=== PATIENT | male | born 1935 | race Caucasian/White ===

== ENCOUNTER 2020-03-22 12:12 | Observation (INO) | payer OTHER, BC ==
[2020-03-22] MEDS ORDERED: ACETAMINOPHEN 325 MG TABLET (FP) PO ONE (13:00)
[2020-03-22] MEDS ORDERED: DIPHTH,PERTUSS(ACELL),TET 0.5 ML DISP.SYRIN IM ONE ×2 (13:00→13:05)
[2020-03-22] MEDS ORDERED: ACETAMINOPHEN 325 MG TABLET (FP) ONE (13:04)
--- NOTE | 2020-03-22 13:37 | PDOC ---
History of Present Illness - General Chief Complaint: Injury Stated Complaint: FALL / LAC Time Seen by Provider: 03/22/20 12:31 - History of Present Illness Initial Comments: Pt is an 84yo M with PMH Afib s/p pacemaker on eliquis, HTN, HLD, GERD, BPH, hx of spinal stenosis who presents following fall. Pt states that he was walking from the bottom of staircase, down hallway when he fell forward and injured his forehead. Denies loss of consciousness. States that since yesterday he has noticed an issue with his R foot, asked his to check if something was wrong with his shoe. Today, his daughter states that as he was walking in the hallway at [facility], she noticed his right foot weakness. Denies any recent f/c, n/v, chest pain, shortness of breath, abdominal pain, incontinence, mental status changes. PCP: Karla Cards: Ausubel PMH: see above PSHx: b/l hip replacement, pacemaker All: NKDA Review of Systems CONSTITUTIONAL:denies fever, chills, diaphoresis, generalized weakness HEENT:denies rhinorrhea, nasal congestion, sore throat CARDIOVASCULAR:denies chest pain, palpitations, lightheadedness RESPIRATORY:denies cough, shortness of breath, wheezing GASTROINTESTINAL: denies abdominal pain, nausea, vomiting, diarrhea, constipation, melena, hematochezia GENITOURINARY:denies dysuria, frequency, urgency, hesitancy, hematuria MUSCULOSKELETAL:reports neck pain HEMATOLOGIC/IMMUNOLOGIC:denies easy bleeding, easy bruising ENDOCRINE: denies unexplained weight gain, unexplained weight loss, heat intolerance, cold intolerance NEUROLOGIC:denies headache, loss of consciousness, focal weakness or paresthesias, dizziness, unsteady gait, mental status changes, bladder or bowel incontinence SKIN:denies rash, itching, pallor Physical Exam General: awake, alert, fully oriented, in no acute distress, well developed, well nourished Head: normocephalic, laceration to R forehead, abrasion to bridge of nose Eyes: PERRL, EOMI, anicteric sclera, conjunctiva clear ENT: hard of hearing, no hemotypanum, oropharynx clear without exudates. No nasal congestion Moist mucous membranes Neck: supple, normal ROM, no midline cervical tenderness Lung: equal breath sounds b/l, CTA b/l, no crackles, wheezes; no distress, speaks full sentences Heart: RRR, normal S1, S2, no murmurs, rubs, gallops Abdomen: soft, non tender, normoactive bowel sounds, no guarding, rebound, ma sses BACK/PELVIS:There is no midline thoracic or lumbosacral spine tenderness or step-off. Pelvis is stable and nontender. Extremities: normal ROM, no edema, no erythema or tenderness, radial/PT pulses 2+ and symmetric, no clubbing, cyanosis Neuro: CN2-12 grossly intact, moves all extremities, normal speech, sensation intact; 5/5 motor strength in B/L LE, with exception of right foot dorsiflexion, negative Babinsky b/l Past History - Medical History Allergies/Adverse Reactions: Allergies Allergy/AdvReac Type Severity Reaction Status Date / Time No Known Allergies Allergy Verified 03/22/20 12:26 Home Medications: Ambulatory Orders Apixaban [Eliquis] 5 mg PO BID 03/22/20 Atorvastatin Ca [Lipitor] 80 mg PO HS 03/22/20 Eplerenone 50 mg PO HS 03/22/20 Finasteride 5 mg PO DAILY 03/22/20 Lansoprazole [Prevacid -] 30 mg PO DAILY 03/22/20 Metoclopramide HCl [Metoclopramide HCl Odt] 10 mg PO DAILY 03/22/20 Metoprolol Succinate 25 mg PO HS 03/22/20 Tamsulosin HCl 0.4 mg PO HS 03/22/20 Zolpidem Tartrate [Ambien] 10 mg PO HS 03/22/20 Cardiac Disorders: Yes COPD: No GI Disorders: Yes (gerd) Hypercholesterolemia: Yes - Surgical History Cardiac Surgery: (pacemaker) - Psycho-Social/Smoking History Smoking History: Never smoked - Substance Abuse Hx (Audit-C & DAST Scrn) How often the patient has a drink containing alcohol: Never Score: In Men: 4 or > Positive; In Women: 3 or > Positive: 0 Screen Result (Pos requires Nsg. Audit-10AR): Negative *Physical Exam - Vital Signs Last Vital Signs Temp Pulse Resp BP Pulse Ox 98 F 59 L 18 124/48 L 95 03/22/20 12:22 03/22/20 12:22 03/22/20 12:22 03/22/20 12:22 03/22/20 12:22 Procedures - Laceration/Wound Repair Right Face Wound Length: 5.0 to 7.5 cm Wound Explored: clean, no foreign body present Wound's Depth, Shape: superficial, linear Irrigated w/ Saline: Yes Anesthesia: 1% Lidocaine w/ Epi Amount of Anesthetic (ccs): 3 Wound Debrided: minimal Wound Repaired With: Sutures Suture Size/Type: 6:0, 5:0 Number of Sutures: 13 Layer Closure: No Sterile Dressing Applied: Yes Progress: Pt tolerated procedure well. Hemostasis achieved. ED Treatment Course - LABORATORY CBC & Chemistry Diagram: 03/22/20 04:43 03/22/20 04:43 - Medications Given in the ED: ED Medications Discontinued Medications Generic Name Dose Route Start Last Admin Trade Name Freq PRN Reason Stop Dose Admin Acetaminophen 650 mg 03/22/20 13:00 03/22/20 13:09 Tylenol - PO 03/22/20 13:01 650 mg ONCE ONE Administration Diphtheria/Tetanus/Acell Pertussis 0.5 ml 03/22/20 13:00 03/22/20 13:08 Boostrix - IM 03/22/20 13:01 0.5 ml .ONCE ONE Administration Medical Decision Making - Medical Decision Making Pt is an 84yo M with PMH Afib s/p pacemaker on eliquis, HTN, HLD, GERD, BPH, hx of spinal stenosis who presents following mechanical fall with new onset R foot weakness on dorsiflexion. Vital Signs Period Temp Pulse Resp BP Sys/Rosas Pulse Ox Last 24 Hr 98 F 59 18 124/48 95 DDx: mechanical fall, cord compression, disc herniation Plan: CT head, CT cervical spine, CXR, pain control, tetanus booster CT head: No CT evidence of acute intracranial pathology. A right frontal scalp laceration is seen. CT cervical spine: No fracture is identified. There is partial imaging of a transvenous cardiac pacemaker in place. A right pleural effusion is partially imaged within the upper chest. Note is also made of mild interlobular septal thickening suggestive of mild interstitial vascular congestion. CXR: There is mild enlargement of the cardiac silhouette. Mild cephalization is noted suggestive of mild vascular congestion. A small right pleural effusion partially imaged on a cervical spine CT exam performed earlier the same day cannot be appreciated on this portable view. A dual chamber transvenous cardiac pacemaker is seen in place. The mediastinum and sherrill demonstrate no obvious pathology. Deformity of the mid and distal aspect of the right clavicle is noted probably on the basis of remote injury. Facial movement intact, no injury to galea appreciated. Laceration was repaired with 13 sutures. Consulted neurosurgery, Dr. Benjamin, who recommended MRI, however given pat jeny's pacemaker, he is unable to get his MRI here. Dr. Benjamin recommended CT lumbar spine. CT lumbar spine: Postsurgical changes are noted as described above two adjacent separate 2 x 0.2 cm tubular shaped extraspinal radiopaque/metallic densities presumably on a postsurgical/postprocedural basis. Marked L3-L4 and moderate to marked L2-L3 degenerative central canal stenosis is seen. There is partial imaging of a right pleural effusion. Given patient's new onset right foot drop, admission for observation and PT was discussed with patient who agreed with plan. Pt discussed with Dr. Figueroa, who accepted care of patient. Disposition Admit Discharge - Discharge Information Problems reviewed: Yes Clinical Impression/Diagnosis: Laceration, Right foot drop Fall Qualifiers: Encounter type: initial encounter Qualified Code(s): W19.XXXA - Unspecified fall, initial encounter Condition: Stable - Admission Yes - Follow up/Referral - Patient Discharge Instructions - Post Discharge Activity
--- NOTE | 2020-03-22 15:15 | PDOC ---
Documentation entered by Chelita Stokes SCRIBE, acting as scribe for Madhavi Moya MD. Madhavi Moya MD: This documentation has been prepared by the scribeKike Ana, SCRIBE, under my direction and personally reviewed by me in its entirety. I confirm that the documentation accurately reflects all work, treatment, procedures, and medical decision making performed by me. Attending Attestation - Resident Resident Name: Debbie Roach - ED Attending Attestation I have performed the following: I have examined & evaluated the patient, The case was reviewed & discussed with the resident, I agree w/resident's findings & plan, Exceptions are as noted - HPI HPI: 03/22/20 12:34 Patient is an 84 year old male with a significant past medical history of Afib (has a pacemaker), hypertension, HLD, GERD, BPH, and spinal stenosis, who presents to the ED with a fall from yesterday. Patient stated he was walking down the stairs when he fell forward. Patient disclosed that since the fall he has been having "issues" with his right foot. Per patient's daughter, patient has a "right foot drop". Patient denies: LOC, fever, chills, nausea, vomiting, or any other related symptoms. Allergies: NKDA - Physicial Exam PE: 03/22/20 13:13 General: well appearing HEENT: ~4cm laceration to forehead with small amount of oozing, no racoon eyes, no moore sign, no hemotympanum Neck: supple, no midline tenderness Extremities: warm and well perfused, dorsiflexion 3-4/5 on R 5/5 on L, no LE edema Neuro: awake, alert, responds appropriately to questions, speech fluent, face s ymmetric, +foot drop on R - Medical Decision Making 03/22/20 13:15 84 yo M with mechanical fall likely 2/2 new foot drop (noticed by daughter yesterday evening), concern for cord compression. Will also r/o ICH as patient with fall, facial trauma and on a/c. Plan: -CT head -CT c-spine -cxr -tetanus -will speak with neurosurgery regarding new foot drop and concern for cord compression (pt with h/o spinal stenosis) and possible need for urgent MRI -lac repair -reassess This clinical encounter is taking place during a federal and state health care emergency attributable to the novel Rodríguez Virus pandemic. The [employer] of the Department of Health and Human Services has declared, pursuant to the Public Health Service Act 319F-3 (42 U.S.C. 247d-6d), that a covered persons activities related to medical countermeasures against COVID-19 will be immune from liability under Federal and State law. 03/22/20 16:18 As per communications technologist, Pt. unable to get MRI because of pacemaker. Spoke with neurosurgery who recommends CT L spine. CT results reviewed and discussed with neurosurgery. Recommend starting steroids. Patient to be admitted. Discharge - Discharge Information Problems reviewed: Yes Clinical Impression/Diagnosis: Laceration, Right foot drop Fall Qualifiers: Encounter type: initial encounter Qualified Code(s): W19.XXXA - Unspecified fall, initial encounter Condition: Stable Disposition: HOME - Follow up/Referral - Patient Discharge Instructions - Post Discharge Activity
[2020-03-22] MEDS ORDERED: methylPREDNISolone 8 MG TABLET PO ONE (15:45)
[2020-03-22] MEDS ORDERED: BACITRACIN 0.9 GM PACKET ONE (16:04)
[2020-03-22] MEDS ORDERED: BACITRACIN 15 GM TUBE TOPICAL OINTMENT TP ONE (16:17)
--- NOTE | 2020-03-22 16:27 | HP ---
CHIEF COMPLAINT: Fall PCP: Karla CARD: Garrett HISTORY OF PRESENT ILLNESS: 84yo M with h/o Atrial fibrillation s/p PPM insertion, HTN, HLd, GERD, BPH who presented originally due to mechanical fall. Patient reports he hit his head without any loss of consciousness and takes AC regularly for his Afib. Patient notes that for about 2 days he has experienced difficulty with his R foot. He thought it had to do with his shoes, however his has noticed that he has some R foot drop when walking. Patient reports when he trips on his foot which initially caused the mechanical fall today. Patient has no new neurological deficits after his fall. In the ER, neurosurgery was consulted after CT Lumbar spine who recommended to give medrol taper. MRI could not be accomplished due to PPM with unknown model. Pt denies any visual disturbances, fever/chills, n/v/d/c, lightheadedness, d izziness, SOB, CP, palpitations, abdominal pain, polyuria, dysuria. PAST MEDICAL HISTORY: As above PAST SURGICAL HISTORY: Lumbar spine surgery (likely decompression based on pt's report; 8 years prior) Hip replacement Social History: Smoking: Denies Alcohol: Denies Drugs: Denies FamHx: noncontributory Allergies No Known Allergies Allergy (Verified 03/22/20 12:26) HOME MEDICATIONS: Home Medications Medication Instructions Recorded Apixaban [Eliquis] 5 mg PO BID 03/22/20 Atorvastatin Ca [Lipitor] 80 mg PO HS 03/22/20 Eplerenone 50 mg PO HS 03/22/20 Finasteride 5 mg PO DAILY 03/22/20 Lansoprazole [Prevacid -] 30 mg PO DAILY 03/22/20 Metoclopramide HCl [Metoclopramide 10 mg PO DAILY 03/22/20 HCl Odt] Metoprolol Succinate 25 mg PO HS 03/22/20 Tamsulosin HCl 0.4 mg PO HS 03/22/20 REVIEW OF SYSTEMS as per HPI PHYSICAL EXAMINATION Vital Signs - 24 hr 03/22/20 12:22 Temperature 98 F Pulse Rate 59 L Respiratory 18 Rate Blood Pressure 124/48 L O2 Sat by Pulse 95 Oximetry (%) GENERAL: Awake, alert, and fully oriented, in no acute distress. HEENT: R head laceration bandaged without blood noted, sutured closed with good approximate borders, EOMI, RONDA, sclera anicteric, MMM NECK: No C-spine TTP LUNGS: CTA bilaterally. No wheezes, and no crackles. No accessory muscle use. HEART: RRR normal S1 and S2 without murmur ABDOMEN: Soft, nontender, not distended, normoactive bowel sounds, no guarding, no rebound EXT: 2+ pulses, warm, well-perfused. No calf tenderness. No peripheral edema. No bony abnormalities NEUROLOGICAL: CN II -XII intact. Motor strength symmetrical in lower extremities 4+/5. Sensation intact throughout. mild tremor noted. Gait with slight R foot drop. PSYCHIATRIC: Cooperative. Good eye contact. Appropriate mood and affect. SKIN: Warm, dry, no rashes or lesions noted ASSESSMENT/PLAN: Mechanical Fall New Onset Motor Deficit R/o lumbar compression Atrial Fibrillation HTN HLD BPH --MRI cannot be performed due to PPM --Lumbar CT reviewed --Neurosurgery consulted: Steroid administration --Neuro checks --Physical therapy consulted --Head CT reviewed --Lac repair performed by ED --Tetanus booster administered --Monitor for rebleed of superficial wound --Phys therapy prior to d/c --Toprol XL for rate control --Hold Eliquis in setting of neuro symptoms and mechanical fall for now --Continue Lipitor 80mg nightly --Continue Finasteride qd and Flomax 0.4mg HS Diet: Regular DVT: SCDs only dispo: Med-surg Rigo Figueroa, DO - IM Visit type - Medication Review Med list reviewed for High Risk Meds patients 65 and older: Yes - Emergency Visit Emergency Visit: Yes ED Registration Date: 03/22/20 Care time: The patient presented to the Emergency Department on the above date and was hospitalized for further evaluation of their emergent condition. - New Patient This patient is new to me today: Yes Date on this admission: 03/22/20 - Critical Care Critical Care patient: No
[2020-03-22] MEDS ORDERED: ACETAMINOPHEN 325 MG TABLET (FP) PO PRN (17:08)
[2020-03-22 17:20] LABS: BASO % 0.5 % (0-2.0); EOS % 0.1 % (0-4.5); HEMOGLOBIN 13.4 GM/dL (11.7-16.9); LYMPH % 6.1 % (8-40); MCH 31.3 pg (25.7-33.7); MCHC 33.6 g/dl (32.0-35.9); MEAN CELL VOLUME 93.3 fl (80-96); MEAN PLT VOLUME 9.6 fl (7.5-11.1); MONO % 5.7 % (3.8-10.2); NEUT % 87.6 % (42.8-82.8); PLATELET COUNT 159 K/MM3 (134-434); RBC 4.29 M/mm3 (4.00-5.60); RDW 13.8 % (11.9-15.9); WHITE BLOOD COUNT 10.1 K/mm3 (4.0-10.0)
[2020-03-22 17:47] LABS: ALBUMIN 3.8 g/dl (3.4-5.0); BILIRUBIN,TOTAL 0.9 mg/dL (0.2-1); BLOOD UREA NITROGEN 22.5 mg/dL (7-18); CREATININE 0.9 mg/dL (0.55-1.3); POTASSIUM 4.4 mmol/L (3.5-5.1); TOT PROT 6.6 g/dl (6.4-8.2)
[2020-03-22 18:51] VITALS: BMI 23.6
[2020-03-22] MEDS: TAMSULOSIN HCL 0.4 MG CAP PO SCH (22:24)
[2020-03-22] MEDS: ATORVASTATIN CA 80 MG TABLET (FP) PO SCH (22:24)
[2020-03-22] MEDS: ZOLPIDEM TARTRATE 5 MG TABLET PO PRN (22:25)
[2020-03-22] MEDS: metoPROLOL SUCCINATE 25 MG TAB.SR.24H (FP) PO SCH (22:25)
[2020-03-23] MEDS: ZOLPIDEM TARTRATE 5 MG TABLET PO PRN (00:48)
[2020-03-23 08:46] LABS: HEMATOCRIT 39.3 % (35.4-49); HEMOGLOBIN 13.3 GM/dL (11.7-16.9); MCH 31.6 pg (25.7-33.7); MCHC 33.7 g/dl (32.0-35.9); MEAN CELL VOLUME 93.7 fl (80-96); MEAN PLT VOLUME 9.8 fl (7.5-11.1); PLATELET COUNT 163 K/MM3 (134-434); RBC 4.19 M/mm3 (4.00-5.60); RDW 13.7 % (11.9-15.9); WHITE BLOOD COUNT 8.9 K/mm3 (4.0-10.0)
[2020-03-23 08:55] LABS: BLOOD UREA NITROGEN 21.7 mg/dL (7-18); CALCIUM 8.9 mg/dL (8.5-10.1); POTASSIUM 3.9 mmol/L (3.5-5.1)
[2020-03-23] MEDS ORDERED: PT OWN MED DRAWER 7, Y5N ONE ×2 (09:09→10:54)
[2020-03-23] MEDS: TAMSULOSIN HCL 0.4 MG CAP PO SCH (09:14)
[2020-03-23] MEDS: FINASTERIDE 5 MG TABLET (FP) PO SCH (09:14)
--- NOTE | 2020-03-23 09:16 | EKG ---
Test Reason : Blood Pressure : / mmHG Vent. Rate : 063 BPM Atrial Rate : 059 BPM P-R Int : 000 ms QRS Dur : 172 ms QT Int : 496 ms P-R-T Axes : 000 110 -17 degrees QTc Int : 507 ms AV dual-paced rhythm WITH FREQUENT PVCs ABNORMAL ECG NO PREVIOUS ECGS AVAILABLE Confirmed by Francisco Williamson ([id number]) on 03/23/2020 9:16:14 AM Referred By: Confirmed By:Francisco Williamson
[2020-03-23] MEDS ORDERED: methylPREDNISolone 4 MG TABLET PO ONE (10:00)
--- NOTE | 2020-03-23 14:07 | PN ---
Teaching Attending Note Name of Resident: Osman Cain ATTENDING PHYSICIAN STATEMENT I saw and evaluated the patient. I reviewed the resident's note and discussed the case with the resident. I agree with the resident's findings and plan as documented. SUBJECTIVE: pt seen and examined OBJECTIVE: Last Vital Signs Temp Pulse Resp BP Pulse Ox 98.6 F 63 18 130/59 L 97 03/23/20 09:10 03/23/20 09:10 03/23/20 09:10 03/23/20 09:10 03/23/20 09:10 GENERAL: Awake, alert, and fully oriented, in no acute distress. HEAD: Rt. frontal/supraorbital laceration, stiched, non bleeding, EYES: Pupils RRR, EOMI, sclera anicteric, conjunctiva clear. LUNGS: Breath sounds equal, clear to auscultation bilaterally. No wheezes, and no crackles. No accessory muscle use. HEART: Regular rate and rhythm, normal S1 and S2 ABDOMEN: Soft, nontender, not distended MUSCULOSKELETAL: Normal range of motion at all joints. No bony deformities or tenderness. No CVA tenderness. UPPER EXTREMITIES: 2+ pulses, warm, well-perfused. No cyanosis. No clubbing. No peripheral edema. LOWER EXTREMITIES: 2+ pulses, warm, well-perfused. No calf tenderness. No peripheral edema. NEUROLOGICAL: Cranial nerves II-XII intact. Normal speech. Rt decreased dorsiflexion. No cerebellar dysfunction noted CBCD WBC 8.9 K/mm3 (4.0-10.0) 03/23/20 06:20 RBC 4.19 M/mm3 (4.00-5.60) 03/23/20 06:20 Hgb 13.3 GM/dL (11.7-16.9) 03/23/20 06:20 Hct 39.3 % (35.4-49) 03/23/20 06:20 MCV 93.7 fl (80-96) 03/23/20 06:20 MCHC 33.7 g/dl (32.0-35.9) 03/23/20 06:20 RDW 13.7 % (11.9-15.9) 03/23/20 06:20 Plt Count 163 K/MM3 (134-434) 03/23/20 06:20 MPV 9.8 fl (7.5-11.1) 08/10/20 06:20 CMP Sodium 141 mmol/L (136-145) 03/23/20 06:20 Potassium 3.9 mmol/L (3.5-5.1) 03/23/20 06:20 Chloride 106 mmol/L (98-107) 03/23/20 06:20 Carbon Dioxide 25 mmol/L (21-32) 03/23/20 06:20 Anion Gap 10 MMOL/L (8-16) 03/23/20 06:20 BUN 21.7 mg/dL (7-18) H 03/23/20 06:20 Creatinine 1.0 mg/dL (0.55-1.3) 03/23/20 06:20 Calcium 8.9 mg/dL (8.5-10.1) 03/23/20 06:20 Total Bilirubin 0.9 mg/dL (0.2-1) 03/22/20 04:43 AST 33 U/L (15-37) 03/22/20 04:43 ALT 31 U/L (13-61) 03/22/20 04:43 Alkaline Phosphatase 89 U/L (45-117) 03/22/20 04:43 Total Protein 6.6 g/dl (6.4-8.2) 03/22/20 04:43 Albumin 3.8 g/dl (3.4-5.0) 03/22/20 04:43 Active Medications Acetaminophen (Tylenol -) 650 mg PO Q4H PRN PRN Reason: FEVER Atorvastatin Calcium (Lipitor -) 80 mg PO HS JEN Last Admin: 03/22/20 22:24 Dose: 80 mg Documented by: Finasteride (Proscar -) 5 mg PO DAILY [facility] Last Admin: 03/23/20 09:14 Dose: 5 mg Documented by: Metoprolol Succinate (Toprol Xl -) 25 mg PO HS [facility] Last Admin: 03/22/20 22:25 Dose: 25 mg Documented by: Zolpidem Tartrate (Ambien -) 5 mg PO HS PRN PRN Reason: INSOMNIA Last Admin: 03/23/20 00:48 Dose: 5 mg Documented by: ASSESSMENT AND PLAN: 84yo man with Mhx of Atrial fibrillation s/p PPM insertion, HTN, HLd, GERD, BPH who presented originally due to mechanical fall without any loss of consciousness # Mechanical Fall -New onset rt foot drop? -CT lumbar: multilevel degenerative disease, post surgical changes -neurosurgeon consulted, possible steroids administration (will need to hold off AC 2 days prior) -CHADVASC 3, HAS-BLED 2 (4%risk) -positive orthostatics will d/c tamsulosin and keep BB -SW, PT eval, ortho-shoes -pt lives alone Atrial Fibrillation (resume AC after injection) HTN HLD BPH DVT: SCDs only
--- NOTE | 2020-03-23 15:09 | CONSULT ---
Consult - text type - Consultation Consultation Note: NEUROSURGERY CONSULTATION Landry Torrez is an 84 year old male who presented to the [facility] ED yesterday after a fall on stairs. The patient describes a 3 day history of Right foot drop. He has a remote history of Lumbar decompression surgery at [facility] (approximately 8 years ago). Patient has atrial fibrillation and is maintained on Elliquis. He struck his head and CT reveals minimal contusions without significant mass effect. Patient has a pacemaker and was unable to have MRI. 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 There is no obvious acute disc herniation, fracture or hematoma which would explain his new foot drop on the Right although there is moderate degenerative changes at most levels. The patient relates no back pain or radicular pain prior to this recent motor weakness which is not associated with any antecedent accident or injury. The patient currently has 3/5 weakness of dorsiflexion on the Right. Given the short duration of symptoms, relatively mild findings, his advanced age, extent of spinal pathology and lack of significant pain in the setting of substantial medical co-morbidities, I feel that acute Neurosurgical intervention would not be the patient's best interest as initial treatment. Patient started on Medrol dosepack yesterday and may be slightly stronger in his dorsiflexion. Patient may benefit from Lumbar epidural steroid injection. Case discussed with Dr. Nolasco who agrees with this plan of care and will see the patient to plan DONALD. All questions answered. Will follow.
--- NOTE | 2020-03-23 17:26 | PN ---
Physical Exam: SUBJECTIVE: No overnight events. Patient seen and examined. Endorses feeling well; Eager to go home. OBJECTIVE: Vital Signs Period Temp Pulse Resp BP Sys/Rosas Pulse Ox Last 24 Hr 98 F-98.8 F 60-76 16-18 130-152/55-91 95-97 GENERAL: The patient is awake, alert, and fully oriented, in no acute distress. HEENT: 4cm sutured laceration R forehead, NC, conjunctiva clear. No ptosis. moist mucous membranes. LUNGS: Breath sounds equal, clear to auscultation bilaterally, no wheezes, no crackles, no accessory muscle use. HEART: Regular rate and rhythm, S1, S2 without murmur, rub or gallop. ABDOMEN: Soft, nontender, nondistended, normoactive bowel sounds EXTREMITIES: 2+ pulses, warm, well-perfused, no edema. 5/5 strength b/l UE. 5/5 strength b/l LE, EXCEPT dorsiflexion R foot 3/5, plantarflexion R foot 4/5. Sensation intact throughout. NEUROLOGICAL: Cranial nerves II through XII grossly intact. Normal speech, gait not observed. cerebellar function infact (rapid alternative movement, heel to haro, finger to nose); Romberg negative PSYCH: Normal mood, normal affect. SKIN: Warm, dry, normal turgor, no rashes or lesions noted Laboratory Results - last 24 hr 03/22/20 03/22/20 03/23/20 04:36 04:43 06:20 WBC 8.9 RBC 4.19 Hgb 13.3 Hct 39.3 MCV 93.7 MCH 31.6 MCHC 33.7 RDW 13.7 Plt Count 163 MPV 9.8 Sodium 140 Potassium 4.4 Chloride 106 Carbon Dioxide 25 Anion Gap 9 BUN 22.5 H Creatinine 0.9 Est GFR (CKD-EPI)AfAm 89.32 Est GFR (CKD-EPI)NonAf 77.06 Random Glucose 107 H Calcium 9.0 Total Bilirubin 0.9 AST 33 ALT 31 Alkaline Phosphatase 89 Total Protein 6.6 Albumin 3.8 COVID-19 (MARGARET) Not detected 03/23/20 06:20 WBC RBC Hgb Hct MCV MCH MCHC RDW Plt Count MPV Sodium 141 Potassium 3.9 Chloride 106 Carbon Dioxide 25 Anion Gap 10 BUN 21.7 H Creatinine 1.0 Est GFR (CKD-EPI)AfAm 78.64 Est GFR (CKD-EPI)NonAf 67.85 Random Glucose 97 Calcium 8.9 Total Bilirubin AST ALT Alkaline Phosphatase Total Protein Albumin COVID-19 (MARGARET) Active Medications Generic Name Dose Route Start Last Admin Trade Name Freq PRN Reason Stop Dose Admin Acetaminophen 650 mg 03/22/20 17:08 Tylenol - PO Q4H PRN FEVER Atorvastatin Calcium 80 mg 03/22/20 22:00 03/22/20 22:24 Lipitor - PO 80 mg HS JEN Administration Finasteride 5 mg 03/23/20 10:00 03/23/20 09:14 Proscar - PO 5 mg DAILY JEN Administration Metoprolol Succinate 25 mg 03/22/20 22:00 03/22/20 22:25 Toprol Xl - PO 25 mg HS JEN Administration Zolpidem Tartrate 5 mg 03/22/20 18:42 03/23/20 00:48 Ambien - PO 5 mg HS PRN Administration INSOMNIA CT head: No CT evidence of acute intracranial pathology. A right frontal scalp laceration is seen. CT cervical spine: No fracture is identified. There is partial imaging of a transvenous cardiac pacemaker in place. A right pleural effusion is partially imaged within the upper chest. Note is also made of mild interlobular septal thickening suggestive of mild interstitial vascular congestion. CXR: There is mild enlargement of the cardiac silhouette. Mild cephalization is noted suggestive of mild vascular congestion. A dual chamber transvenous cardiac pacemaker is seen in place. Deformity of the mid and distal aspect of the right clavicle is noted probably on the basis of remote injury. CT lumbar spine: two adjacent separate 2 x 0.2 cm tubular shaped extraspinal radiopaque/metallic densities presumably on a postsurgical/postprocedural basis. Marked L3-L4 and moderate to marked L2-L3 degenerative central canal stenosis is seen. There is partial imaging of a right pleural effusion. Supine 150/71 HR 60 Sitting 149/75 HR 78 Standing 137/54 HR 70 ASSESSMENT/PLAN: 84 YO M PMH HTN, HLD, BPH, GERD, afib (on eliquis), spinal stenosis (s/p Lumbar decompression surgery 8 yrs ago), and PPM presented s/p a mechanical fall after tripping. was first to notice his R foot drop. # Fall 2/2 Foot drop Vs orthostatic hypotension -New onset R foot drop X 2 days -Neurosurgery c/s appreciated. Neurosurgical intervention not indicated currently. DONALD w/ Dr. Nolasco recommended -AC held (2 days prior to DONALD) -PT: walked 60 ft #Atrial Fibrillation: c/w eliquis after DONALD #HTN: c/w home rx metoprolol 25 mg PO HS #HLD: c/w home dose atorvastatin 80 mg PO HS #BPH: c/w home rx finasteride 5 mg PO daily. DC tamusolosin 2/2 orthostatic hypotension #DVT: SCDs only; : c/w eliquis after DONALD Visit type - Emergency Visit Emergency Visit: Yes ED Registration Date: 03/22/20 Care time: The patient presented to the Emergency Department on the above date and was hospitalized for further evaluation of their emergent condition. - New Patient This patient is new to me today: Yes Date on this admission: 03/23/20 - Critical Care Critical Care patient: No - Medication Review Med list reviewed for High Risk Meds patients 65 and older: Yes ATTENDING PHYSICIAN STATEMENT I saw and evaluated the patient. I reviewed the resident's note and discussed the case with the resident. I agree with the resident's findings and plan as documented. SUBJECTIVE: OBJECTIVE: ASSESSMENT AND PLAN:
[2020-03-23] MEDS: ATORVASTATIN CA 80 MG TABLET (FP) PO SCH (21:27)
[2020-03-23] MEDS: metoPROLOL SUCCINATE 25 MG TAB.SR.24H (FP) PO SCH (21:27)
[2020-03-24] MEDS: ZOLPIDEM TARTRATE 5 MG TABLET PO PRN (00:17)
[2020-03-24 08:43] LABS: BASO % 0.8 % (0-2.0); EOS % 0.6 % (0-4.5); HEMOGLOBIN 14.4 GM/dL (11.7-16.9); LYMPH % 13.9 % (8-40); MCH 31.8 pg (25.7-33.7); MCHC 34.3 g/dl (32.0-35.9); MEAN CELL VOLUME 92.8 fl (80-96); MEAN PLT VOLUME 9.2 fl (7.5-11.1); MONO % 10.4 % (3.8-10.2); NEUT % 74.3 % (42.8-82.8); PLATELET COUNT 171 K/MM3 (134-434); RBC 4.53 M/mm3 (4.00-5.60); WHITE BLOOD COUNT 9.3 K/mm3 (4.0-10.0)
[2020-03-24 09:15] LABS: BLOOD UREA NITROGEN 22.7 mg/dL (7-18); CALCIUM 9.2 mg/dL (8.5-10.1); CREATININE 0.9 mg/dL (0.55-1.3); MAGNESIUM 2.3 mg/dL (1.8-2.4); PHOSPHOROUS 3.2 mg/dL (2.5-4.9); POTASSIUM 3.8 mmol/L (3.5-5.1); TOT PROT 7.5 g/dl (6.4-8.2)
[2020-03-24] MEDS: FINASTERIDE 5 MG TABLET (FP) PO SCH (09:23)
--- NOTE | 2020-03-24 09:47 | ECHO ---
Name: BERTHA MCGARRY Exam:Adult Echocardiogram Study Date: 03/24/2020 08:32 AM Age: 84 yrs Reason For Study: SYNCOPE Height: 70 in Weight: 164 lb BSA: 1.9 m2 MMode/2D Measurements & Calculations IVSd: 1.5 cm Ao root diam: 3.0 cm LVIDd: 4.1 cm LA dimension: 4.3 cm LVIDs: 3.0 cm LVPWd: 1.4 cm EDV(Teich): 73.5 ml LVOT diam: 2.0 cm ESV(Teich): 35.7 ml LAV (MOD-bp): 97.3 ml Doppler Measurements & Calculations MV E max edenilson: 111.0 cm/sec Ao V2 max: 150.5 cm/sec MV A max edenilson: 45.9 cm/sec Ao max P.1 mmHg MV E/A: 2.4 AI P1/2t: 508.2 msec MV dec time: 0.22 sec LETY(V,D): 1.5 cm2 AI max edenilson: 360.7 cm/sec LV V1 max P.0 mmHg AI max P.1 mmHg LV V1 max: 70.6 cm/sec AI dec slope: 207.9 cm/sec2 MR max edenilson: 602.8 cm/sec TR max edenilson: 259.0 cm/sec MR max P.5 mmHg TR max P.8 mmHg PA V2 max: 122.0 cm/sec Med Peak E' Edenilson: 3.2 cm/sec PA max P.9 mmHg Med E/e': 35.2 Lat Peak E' Edenilson: 5.9 cm/sec Lat E/e': 18.9 PI Vmax: 91.9 cm/sec Procedure A two-dimensional transthoracic echocardiogram with color flow and Doppler was performed. The patient was in an abnormal rhythm during the exam. Left Ventricle The left ventricle is normal in size. There is moderate concentric left ventricular hypertrophy. Left ventricular systolic function is low normal. Ejection Fraction = 50%. Diastolic dysfunction, Grade II (pseudonormalization pattern). There is septal akinesis. Right Ventricle The right ventricle is normal in size and function. There is a pacemaker lead in the right ventricle. Atria The left atrium is mildly dilated. Right atrial size is normal. Mitral Valve The mitral valve is grossly normal. There is moderate mitral regurgitation. Tricuspid Valve The tricuspid valve is not well visualized, but is grossly normal. There is trace tricuspid regurgita tion. There was insufficient TR detected to calculate RV systolic pressure. Aortic Valve There is mild aortic sclerosis.;. No hemodynamically significant valvular aortic stenosis. Mild aorti c regurgitation. Pulmonic Valve The pulmonic valve is not well seen, but is grossly normal. Mild pulmonic valvular regurgitation. Great Vessels The aortic root is normal size. Pericardium/Pleura There is no pericardial effusion. Interpretation Summary The left ventricle is normal in size. There is moderate concentric left ventricular hypertrophy. Left ventricular systolic function is low normal. There is septal akinesis. Diastolic dysfunction, Grade II (pseudonormalization pattern). The left atrium is mildly dilated. There is moderate mitral regurgitation. There is trace tricuspid regurgitation. There was insufficient TR detected to calculate RV systolic pressure. There is mild aortic sclerosis.; No hemodynamically significant valvular aortic stenosis. Mild aortic regurgitation. MD Douglas Menezes 03/24/2020 09:47 AM
--- NOTE | 2020-03-24 14:03 | PN ---
Teaching Attending Note Name of Resident: Osman Cain ATTENDING PHYSICIAN STATEMENT I saw and evaluated the patient. I reviewed the resident's note and discussed the case with the resident. I agree with the resident's findings and plan as documented. SUBJECTIVE: doing well, and still has foot drop. but able to walk, no new c/o. OBJECTIVE: appears comfortable, and walking around Last Vital Signs Temp Pulse Resp BP Pulse Ox 97.7 F 67 17 153/67 98 03/24/20 14:27 03/24/20 14:27 03/24/20 14:27 03/24/20 14:27 03/24/20 14:27 GENERAL: Awake, alert, and fully oriented, in no acute distress. HEAD: Normal with no signs of trauma. EYES: Pupils equal, round and reactive to light, extraocular movements intact, sclera anicteric, conjunctiva clear. No lid lag. EARS, NOSE, THROAT: Ears normal, nares patent, oropharynx clear without exudates. Moist mucous membranes. NECK: Normal range of motion, supple without lymphadenopathy, JVD, or masses. LUNGS: Breath sounds equal, clear to auscultation bilaterally. No wheezes, and no crackles. No accessory muscle use. HEART: Regular rate and rhythm, normal S1 and S2 without murmur, rub or gallop. ABDOMEN: Soft, nontender, not distended, normoactive bowel sounds, no guarding, no rebound, no masses. No hepatomegaly or splenomegaly. MUSCULOSKELETAL: Normal range of motion at all joints. No bony deformities or tenderness. No CVA tenderness. UPPER EXTREMITIES: 2+ pulses, warm, well-perfused. No cyanosis. No clubbing. Cap refill <2 seconds. No peripheral edema. LOWER EXTREMITIES: 2+ pulses, warm, well-perfused. 3/5 dorsiflexion R foot, and no gait abnormality. NEUROLOGICAL: Cranial nerves II-XII intact. Normal speech. Normal gait. PSYCHIATRIC: Cooperative. Good eye contact. Appropriate mood and affect. SKIN: Warm, dry, normal turgor, no rashes or lesions noted. sutures on the forehead, clean no bleeding, CBC, BMP 03/24/20 07:40 03/24/20 07:40 ASSESSMENT AND PLAN: 84yo man with Mhx of Atrial fibrillation s/p PPM insertion, HTN, HLd, GERD, BPH who presented originally due to mechanical fall without any loss of consciousness # Mechanical Fall -New onset rt foot drop -CT lumbar: multilevel degenerative disease, post surgical changes -neurosurgeon consulted, no surgical intervention needed was seen by DR Nolasco -refusing to do DONALD. -SW, PT eval, ortho-shoes -pt lives alone Atrial Fibrillation will continue A/C as refusing the DONALD. HTN HLD BPH dced home and outpt pmd fu,
[2020-03-24 14:31] VITALS: BP 153/67; PULSE 67; TEMP 97.7
--- NOTE | 2020-03-24 15:50 | DS ---
Physical Exam: SUBJECTIVE: Patient seen and examined. No complaints. Eager to go home. OBJECTIVE: Vital Signs Period Temp Pulse Resp BP Sys/Rosas Pulse Ox Last 24 Hr 97.7 F-98.7 F 67-91 17-19 127-157/64-85 95-98 PHYSICAL EXAM GENERAL: The patient is awake, alert, and fully oriented, in no acute distress. HEENT: 4cm sutured laceration R forehead, NC, conjunctiva clear. No ptosis. moist mucous membranes. LUNGS: Breath sounds equal, clear to auscultation bilaterally, no wheezes, no c rackles, no accessory muscle use. HEART: Regular rate and rhythm, S1, S2 without murmur, rub or gallop. ABDOMEN: Soft, nontender, nondistended, normoactive bowel sounds EXTREMITIES: 2+ pulses, warm, well-perfused, no edema. 5/5 strength b/l UE. 5/5 strength b/l LE, EXCEPT dorsiflexion R foot 3/5, plantarflexion R foot 4/5. Sensation intact throughout. NEUROLOGICAL: Cranial nerves II through XII grossly intact. Normal speech, gait not observed. cerebellar function infact (rapid alternative movement, heel to haro, finger to nose); Romberg negative PSYCH: Normal mood, normal affect. SKIN: Warm, dry, normal turgor, no rashes or lesions noted LABS Laboratory Results - last 24 hr 03/24/20 03/24/20 07:40 07:40 WBC 9.3 RBC 4.53 Hgb 14.4 Hct 42.0 MCV 92.8 MCH 31.8 MCHC 34.3 RDW 14.0 Plt Count 171 MPV 9.2 Absolute Neuts (auto) 6.9 Neutrophils % 74.3 Lymphocytes % 13.9 D Monocytes % 10.4 H D Eosinophils % 0.6 D Basophils % 0.8 Nucleated RBC % 0 Sodium 140 Potassium 3.8 Chloride 106 Carbon Dioxide 27 Anion Gap 7 L BUN 22.7 H Creatinine 0.9 Est GFR (CKD-EPI)AfAm 89.32 Est GFR (CKD-EPI)NonAf 77.06 Random Glucose 99 Calcium 9.2 Phosphorus 3.2 Magnesium 2.3 Total Bilirubin 1.0 AST 41 H ALT 39 Alkaline Phosphatase 95 Total Protein 7.5 Albumin 4.0 HOSPITAL COURSE: 84yo M with h/o Atrial fibrillation(on Eliquis) s/p PPM insertion, HTN, HLd, GERD, BPH BIBA after sustaining mechanical fall w/o LOC. Has been experiencing foot Right foot drop x2d. Had a scalp lac repair(ED, ). CTH neg. CTcspine neg for fx. CXR showed remote Right clavicular fracture. CT Lspine notable for marked degenerative central canal stenosis of L2-L3, L3-L4. Neurosurgery was consulted who recommended pain management for epidural steroid injection. 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 Pt should get AFO and see Neurology f/u for EMG. Pt walked with PT, 200ft. Pt did not want any placements. Orthostatics were positive so Tamsulosin was held. Pt deemed stable for discharge home. Date of Admission:03/22/20 Date of Discharge: 03/24/20 Minutes to complete discharge: 45 Discharge Summary Problems reviewed: Yes Reason For Visit: FALL / LAC Condition: Stable - Instructions Diet, Activity, Other Instructions: You came to the hospital after falling and sustaining a laceration to your forehead. You also came in with a Right foot drop. Your head wound was sutured. Imaging of your head did not show any acute pathology. Imaging of your spine showed narrowing of our spinal canal, which is a chronic issue for you that you reported was already addressed in a previous surgery. You were evaluated by a neurosurgeon, who found that neurosurgery was not indicated. A pain management physician evaluated you and offered a steroid injection, but you declined. If you choose to have the steroid injection at a later time, please consult with the physician first, as he/she may ask you to stop your eliquis before the injection. Echocardiogram of your heart showed a normal heart size, but moderate thickening of the heart and impaired relaxation of your heart. Measurement of your blood pressure indicated that you have orthostatic hypotension. This is a decrease in the blood pressure when you sit up from the supine position (lying down), or if you stand up quickly from a sitting/supine position. Orthostatic hypotension can make you lightheaded and could also lead to falls. As a result, your home medication of tamsulosin (Flomax) was stopped as it can cause this orthostatic hypotension. You are stable for discharge. MEDICATIONS Please STOP tamsulosin (Flomax). Please discuss with your Primary Care Physician, when it would be appropriate to restart this medication. Please continue other home medications as prescribed. FOLLOW-UP Please follow-up with your primary care physician, Dr. Acosta, to discuss your recent hospitalization and for general health maintenance. Please have him evaluate your head wound. The stitches should be removed after 10-14 days(04/01/20 or 04/05/20) Please follow-up with pain management physician, Dr. Nolasco, if you choose to have the steroid injection at a later time. Please STOP taking the Apixaban[ELIQUIS] if you plan on going to this appointment. Please follow-up with neurosurgeon, Dr. Benjamin, regarding your lower spine stenosis. If your symptoms get worse, you may want to discuss surgical options Please follow-up with neurologist, Dr. Ansari, for further workup of your footdrop and an EMG (Electromyography). Please follow-up with a physical therapist for therapy. Please call 911 or come directly to the emergency department if you experience loss of alertness/awareness, loss of function, chest pain, unusual headache, vision change, difficulty speaking, numbness, tingling, chest pain, shortness of breath, unusual bleeding, or any alarming symptoms. Referrals: Raul Ansari MD [Staff Physician] - José Manuel Benjamin MD, [facility] [Staff Physician] - Cristobal Nolasco DO [Staff Physician] - 03/27/20 (Please discuss whether or not you would like to procedure with Lumbar Epidural Steroid Injection. Please do not take your Apixaban[ELIQUIS] if you plan on going to his office) Frank Acosta [Primary Care Provider] - Disposition: HOME - Home Medications Comprehensive Discharge Medication List: Ambulatory Orders Apixaban [Eliquis] 5 mg PO BID 03/22/20 Atorvastatin Ca [Lipitor] 80 mg PO DAILY 03/22/20 Eplerenone 50 mg PO DAILY 03/22/20 Finasteride 5 mg PO DAILY 03/22/20 Lansoprazole [Prevacid -] 30 mg PO DAILY 03/22/20 Metoclopramide HCl [Metoclopramide HCl Odt] 10 mg PO DAILY 03/22/20 Metoprolol Succinate 25 mg PO DAILY 03/22/20 Zolpidem Tartrate [Ambien] 10 mg PO HS 03/22/20 Losartan Potassium 100 mg PO DAILY 03/23/20 Sertraline HCl 50 mg PO DAILY 03/23/20 This patient is new to me today: No Emergency Visit: Yes ED Registration Date: 03/22/20 Care time: The patient presented to the Emergency Department on the above date and was hospitalized for further evaluation of their emergent condition. Critical Care patient: No - Discharge Referral Referred to [facility] Med [facility] No ATTENDING PHYSICIAN STATEMENT I saw and evaluated the patient. I reviewed the resident's note and discussed the case with the resident. I agree with the resident's findings and plan as documented. SUBJECTIVE: OBJECTIVE: ASSESSMENT AND PLAN:
--- NOTE | 2020-03-24 15:53 | CONSULT ---
Consult Consult Specialty:: Interventional Spine & Pain Management Reason for Consultation:: Eval for DONALD - History of Present Illness Chief Complaint: Foot drop History of Present Illness: The patient sufferd a fall 3 days ago and reports noticing right foot weakness prior to his fall. Pt has a history of afib on eliquis and has a history of L4- L5 Laminectomy fusion with sacral lumbarization. Currently the patient has no pain in the right leg or foot. Pt endorses never having pain, only noticing weakness in dorsiflexion of the foot prior to his fall. - History Source History Provided By: Patient - Smoking History Smoking history: Never smoked Have you smoked in the past 12 months: No Home Medications - Allergies Allergies/Adverse Reactions: Allergies Allergy/AdvReac Type Severity Reaction Status Date / Time No Known Allergies Allergy Verified 03/22/20 12:26 - Home Medications Home Medications: Ambulatory Orders Apixaban [Eliquis] 5 mg PO BID 03/22/20 Atorvastatin Ca [Lipitor] 80 mg PO DAILY 03/22/20 Eplerenone 50 mg PO DAILY 03/22/20 Finasteride 5 mg PO DAILY 03/22/20 Lansoprazole [Prevacid -] 30 mg PO DAILY 03/22/20 Metoclopramide HCl [Metoclopramide HCl Odt] 10 mg PO DAILY 03/22/20 Metoprolol Succinate 25 mg PO DAILY 03/22/20 Zolpidem Tartrate [Ambien] 10 mg PO HS 03/22/20 Losartan Potassium 100 mg PO DAILY 03/23/20 Sertraline HCl 50 mg PO DAILY 03/23/20 Review of Systems - Review of Systems Constitutional: reports: No Symptoms Eyes: reports: No Symptoms HENT: reports: Other Neck: reports: No Symptoms Cardiovascular: reports: No Symptoms Respiratory: reports: No Symptoms Gastrointestinal: reports: No Symptoms Genitourinary: reports: No Symptoms Musculoskeletal: reports: No Symptoms Integumentary: reports: Other (head lac) Neurological: reports: Other (right foot drop) Endocrine: reports: No Symptoms Hematology/Lymphatic: reports: No Symptoms Psychiatric: reports: No Symptoms Physical Exam Vital Signs: Vital Signs Temperature 97.7 F 03/24/20 14:27 Pulse Rate 67 03/24/20 14:27 Respiratory Rate 17 03/24/20 14:27 Blood Pressure 153/67 03/24/20 14:27 O2 Sat by Pulse Oximetry (%) 98 03/24/20 14:27 Constitutional: Yes: Well Nourished, No Distress, Calm Eyes: Yes: WNL, Conjunctiva Clear, EOM Intact HENT: Yes: Normocephalic, Other (head lac/ contusion) Neck: Yes: Trachea Midline Cardiovascular: Yes: Regular Rate and Rhythm Respiratory: Yes: Regular Gastrointestinal: Yes: Other (non disteneded) Musculoskeletal: Yes: Muscle Weakness (right foot drop) Edema: No Neurological: Yes: Weakness ...Motor Strength: RLE (DF 3/5 Otherwise intact Able to ambulate in the room without assistance hip hiking) Labs: CBC, BMP 03/24/20 07:40 03/24/20 07:40 Imaging - Results Cat Scan: Image Reviewed Assessment/Plan The patient has right foot drop of unclear etiology. 1. At this point in time I do not recommend a trial of DONALD. 2. Recommend further neurology workup including EMG to evaluate for possible underlying myopathy. Recommend neurology follow up. 3. Recommend an Ankle foot orthosis to aid in ambulation. 4. Recommend aggressive PT once medically stable. 5. When work up is complete pt may follow up in my practice for interventional pain care as needed. 6. The case was discussed with Dr. Ramirez. Thank you for consult. Cristobal Nolasco DO Interventional Spine & Pain Management [facility]
== END 2020-03-24 15:29 | disposition home or self-care (01) ==
LOC: JER 12:12 → JERBED 16:00 → J6S 18:13
PROVIDERS: ADMIT Internal Medicine; ATTEND Internal Medicine
PROC: 0HQ1XZZ Repair Face Skin, External Approach (ICD-10-PCS; principal; 2020-03-22)
PROC: 3E0234Z Introduction of Serum, Toxoid and Vaccine into Muscle, Percutaneous Approach (ICD-10-PCS; 2020-03-22)
DX: S01.81XA Laceration without foreign body of other part of head, initial encounter (principal); W18.39XA Other fall on same level, initial encounter; W10.9XXA Fall (on) (from) unspecified stairs and steps, initial encounter; Y93.89 Activity, other specified; Y92.89 Other specified places as the place of occurrence of the external cause; I48.91 Unspecified atrial fibrillation; I10 Essential (primary) hypertension; E78.5 Hyperlipidemia, unspecified; K21.9 Gastro-esophageal reflux disease without esophagitis; N40.0 Benign prostatic hyperplasia without lower urinary tract symptoms; M48.00 Spinal stenosis, site unspecified; Z95.0 Presence of cardiac pacemaker
CPT/HCPCS: 12014; 36415; 70450-TC; 71045-TC-FY; 72125-TC; 72131-TC; 80048; 80053; 83735; 84100; 85025; 85027; 90471; 90715; 93005; 93010; 93306-TC; 97116-GP; 97162-GP; 99285-25; G0378; U0003